=== PATIENT | male | born 1950 | race African-American/Black ===

== ENCOUNTER → 2019-03-01 | Outpatient (CLI) | payer OTHER ==
[~2019-03-01] VITALS: Ht 157.5 cm; Wt 67.1 kg
[~2019-03-01] MED LIST: CIPRO HC OTIC S10 ML OTIC; CLARITIN-D 12 H1 TA1 PO; LIPITOR10 MG PO; LISINOPRIL-HCT1 EACH PO
--- NOTE | 2019-03-01 15:48 | P ---
[facility] [place] [address] PROCEDURE REPORT Name: ADAN HELM [facility] #: [facility] [id number] Admission: 03/01/19 ������������������ Attend Phys: Antoine Martines Discharge: ������������������ Date of : 48 Report #: [id number] THIS REPORT FOR: //name// CC: Antoine Barrett MD DATE OF SERVICE: 03/01/2019 PROCEDURE PERFORMED: Colonoscopy with biopsies. HISTORY OF PRESENT ILLNESS: The patient is a 68-year-old male, who presents today for routine screening colonoscopy. Last colonoscopy was 10 years ago and negative other than diverticulosis. He denies any symptoms. No family history of colon cancer. DESCRIPTION OF PROCEDURE: The risks and benefits of the procedure were explained to the patient, those risks including but not limited to bleeding, perforation, the risk of sedation. He understood these risks and gave informed consent. Sedation was given using propofol per anesthesia. Next, a digital rectal exam was initially performed, which was normal. Next, using a standard Olympus colonoscope, the scope was placed in the patient's anus and advanced under direct vision to the cecum. The overall prep was good. The cecum and ileocecal valve were normal in appearance. In the ascending colon, there were 3 polyps, the smaller polyps were 3-4 mm in size and removed by cold forceps, the larger was 5 mm and removed by snare cautery. The transverse and descending colon were normal, multiple diverticula were noted in the sigmoid colon, no evidence of inflammation, otherwise normal. The rectal mucosa was normal. On retroflexion, no abnormalities were noted. The scope was then withdrawn and the procedure terminated. The patient tolerated the procedure well. IMPRESSION: 1. Three small colonic polyps. 2. Sigmoid diverticulosis. 3. Otherwise normal colonoscopy. RECOMMENDATIONS: 1. Await biopsy results. 2. If polyps are adenomatous, repeat in 5 years; if hyperplastic, repeat in [address] [address] PROCEDURE REPORT Name: ADAN HELM Room #: REG [facility].#: [id number] Admission: 03/01/19 ������������������ Attend Phys: Antoine Martines Discharge: ������������������ Date of : 48 Report #: [id number] Thank you for allowing me to participate in his care. ��������������������������������������������� <ELECTRONICALLY SIGNED> ���������������������������������������� By: Antoine Paredes MD ��������������������������������������������� 03/01/19 1548 1028 1152 Antoine Paredes MD /nt
--- NOTE | 2019-03-04 16:11 | PATH ---
[facility] [place], [place] [address] [place] [address] PATHOLOGY RPT PROCEDURE Name: ELISEO MURILLO Room #: REG [facility] M.R.#: [id number] ������������������ Admission: 03/01/19 ������������������ Date of : 48 Discharge: Report #: [id number] Path Case #: [id number] [facility] Accession Number: [id number] . 01 Material submitted: . BX POLYPS AT ASCENDING COLON X3 . 01 Clinical history: . Pre-OP DX: Screening Post-OP DX: Colon polyps, diverticulosis . 02 Diagnosis: Polyps x3, at ascending colon, endoscopic biopsy: - Hyperplastic polyps, multiple. - Negative for dysplasia. . (IUV:mml; 03/04/2019) QLM/03/04/2019 . 02 Electronically signed: . Nazanin Varghese MD, Pathologist NPI- [id number] . 01 Gross description: . Received in formalin labeled "Eliseo Murillo, BX polyp at ascending colon x3," and additionally labeled on the requisition as "polyps," are 6 segments of cole soft tissue measuring 2.2 x 1.3 x 0.4 cm in aggregate dimensions and ranging from 0.3 to 0.6 cm in maximum dimension. The specimen is submitted entirely in cassette A1. (TSD; 03/01/2019) TOB/TOB . 02 Pathologist provided ICD-10: K63.5 . 02 CPT . 539509 Specimen Comment: A courtesy copy of this report has been sent to Specimen Comment: [phone]. Specimen Comment: Report sent to Performed at: [address] [id number] MD Paulino Hudson MD Phone: [phone] Performed at: [address] [id number] [address] [address] PATHOLOGY RPT PROCEDURE Name: ELISEO MURILLO R Room #: REG [facility] M.R.#: [id number] ������������������ Admission: 03/01/19 ������������������ Date of : 48 Discharge: Report #: [id number] Path Case #: [id number] MD Nazanin Varghese MD Phone: [phone]
== END | disposition home or self-care (01) ==
LOC: GI 07:51
DX: Z12.11 Encounter for screening for malignant neoplasm of colon (principal); K63.5 Polyp of colon; K57.30 Diverticulosis of large intestine without perforation or abscess without bleeding; I10 Essential (primary) hypertension; E78.00 Pure hypercholesterolemia, unspecified; Z98.890 Other specified postprocedural states; Z85.46 Personal history of malignant neoplasm of prostate; Z96.642 Presence of left artificial hip joint; Z79.899 Other long term (current) drug therapy
CPT/HCPCS: 62110; 62900